=== PATIENT | female | born 1965 | race African-American/Black ===

== ENCOUNTER 2022-02-20 09:47 | Emergency (ER) | payer OTHER, SELFPAY ==
[2022-02-20 10:06] VITALS: BP 147/80; PULSE 67; RESP 16; TEMP 35.7; O2SAT 99
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
== END 2022-02-20 10:45 | disposition home or self-care (01) ==
PROVIDERS: Emergency Provider Nurse Practitioner
DX: M54.41 Lumbago with sciatica, right side (principal)
CPT/HCPCS: 99213; G0463

== ENCOUNTER 2022-09-25 15:53 | Observation (INO) | payer OTHER, SELFPAY ==
[2022-09-25] VITALS (7 sets, daily range): BP systolic 125–180; BP diastolic 65–125; PULSE 64–80; RESP 15–19; TEMP 36.2; O2SAT 96–100
--- NOTE | ~2022-09-25 | XR_ITS ---
EXAMINATION: XR chest 1V portable Exam Date/Time: 09/25/2022 16:05 CDT HISTORY: right sided numbness/ TINGLE IN FACE AND ARM, NO CARDIAC HX Comparison: None available. RESULT: Lines, tubes, and devices: None. Lungs and pleura: Clear. Eventration and elevation of the right hemidiaphragm. Cardiomediastinal silhouette: Normal. Other: No acute osseous or upper abdominal finding. IMPRESSION: No acute cardiopulmonary process. Reviewed, dictated and finalized at location K.
--- NOTE | ~2022-09-25 | CT_ITS ---
EXAMINATION: CTA brain carotid DATE: 09/25/2022 16:57 INDICATION: R facial and arm numbness TECHNIQUE: Computed tomographic angiography (CTA) of the head was performed without and with 100 mL O mnipaque-350 intravenous contrast. CTA of the neck was performed with intravenous contrast. Automated exposure control and iterative reconstruction technique were employed. The dose-length product was 1 474.47 mGy-cm. Maximum intensity projection and volume rendered 3D-reconstructions were created by juan oden technologist on a separate workstation. COMPARISON: None. FINDINGS: CT BRAIN: No acute large vessel infarct, intracranial hemorrhage, mass, or hydrocephalus. CTA HEAD: No large vessel occlusion, aneurysm, high flow vascular malformation, nidus or extravasation. Variant anterior cerebral artery anatomy, both ACAs originate from the left circulation. CTA NECK: Aortic arch and proximal great vessels: Unremarkable. Right common carotid, carotid bifurcation, and internal carotid artery: No significant plaque.There i s 0% stenosis of the proximal right internal carotid artery relative to normal distal artery lumen di ameter (NASCET criteria). Left common carotid, carotid bifurcation, and internal carotid artery: No significant plaque.There is 0% stenosis of the proximal left internal carotid artery relative to normal distal artery lumen diam eter (NASCET criteria). Vertebral arteries: No significant plaque or stenosis. Other findings: Degenerative changes in the cervical spine. Subcentimeter right thyroid lobe hypodens ity, that requires no additional workup. IMPRESSION: No acute intracranial process. No large vessel occlusion. No severe carotid or vertebral artery steno sis. Reviewed, dictated and finalized at location K. IMPRESSION: No acute intracranial process. No large vessel occlusion. No severe carotid or vertebral artery stenosis.
--- NOTE | ~2022-09-25 | MR_ITS ---
EXAMINATION: MR brain/brain stem wo/w con DATE: 09/26/2022 12:37 INDICATION: Cerebrovascular accident. Right face and arm numbness. TECHNIQUE: Magnetic resonance imaging (MRI) of the brain and brainstem was performed without and with 12 mL MultiHance intravenous contrast. COMPARISON: Head CT 09/25/2022 FINDINGS: There are scattered areas of nonspecific increased T2-weighted signal intensity in the cere bral white matter. There is no intracranial hemorrhage or acute infarction. There is a 12 x 9 x 12 mm enhancing extra-axial mass in the left olfactory groove. The ventricles are normal in size. The orbi ts are normal. The mastoid air cells are normal. There is a hemangioma in left parietal bone. IMPRESSION: 1. 12 mm enhancing mass in the left olfactory groove, consistent with a meningioma. 2. Mild nonspecific cerebral white matter disease, which likely represents chronic small vessel ische grady disease. Reviewed, dictated and finalized at location A. IMPRESSION: 1. 12 mm enhancing mass in the left olfactory groove, consistent with a meningi meron. 2. 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
--- NOTE | 2022-09-25 15:56 | ECG_ITS ---
Measurements Intervals [place] Rate: 68 P: 60 CT: 178 QRS: 56 QRSD: 80 T: 62 QT: 403 QTc: 430 Interpretive Statements SINUS RHYTHM WITHIN NORMAL LIMITS NO PREVIOUS ECG AVAILABLE FOR COMPARISON Electronically Signed On 09-26-2022 12:25:41 CDT by Eligio Brown M.D.
[2022-09-25 16:25] LABS: Basophils Percent Auto 0.7 % (0.2-1.2); Eosinophils Absolute Auto 0.1 K/mm3 (0-0.3); Eosinophils Percent Auto 3.1 % (0-4.4); Hemoglobin 13.5 g/dL (12.0-15.0); Immature Granulocyte Absolute 0.01 K/mm3 (0.00-0.031); Immature Granulocyte Percent A 0.2 % (0-0.5); Lymphocytes Absolute Auto 1.62 K/mm3 (0.9-3.2); Lymphocytes Percent Auto 35.8 % (18.3-44.2); Mean Corpuscular HGB Conc 32.9 g/dl (32-36); Mean Corpuscular Hemoglobin 29.5 pg (26-34); Mean Corpuscular Volume 89.7 fl (80-100); Mean Platelet Volume 10.5 fl (7.4-10.4); Monocytes Absolute Auto 0.7 K/mm3 (0.1-0.6); Monocytes Percent Auto 14.6 % (2.6-8.5); Neutrophils Absolute Auto 2.1 K/mm3 (1.3-6.7); Neutrophils Percent Auto 45.6 % (45.5-73.1); Platelet Count Result 258 k/mm3 (150-375); Red Blood Count 4.57 M/mm3 (4.2-5.4); Red Cell Distribution Width 13.4 % (11.5-14.5); White Blood Count 4.5 K/mm3 (4.5-10.0)
--- NOTE | 2022-09-25 16:27 | ED.GENADULT ---
HPI - General Adult General Chief complaint: Suspected CVA Stated complaint: right sided numbness since 1200 Time Seen by Provider: 09/25/22 16:07 History of Present Illness HPI narrative: This is a 57-year-old female presenting to ED with right-sided facial and arm numbness. Last known normal was 1:00 p.m. today. Patient is was out drinking last night and has felt hung over all morning. At 1:00 p.m. she had developed numbness over the right side of her face and her right arm. The patient has a complicated neurologic history and is not clear on her symptoms. 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 Additionally she has been having intermittent numbness and tingling in her right arm for the last year. Patient also had dental work done on the right side which is where her headache is 4 days ago she is not sure for current headache is due to dental work. She denies though she should double vision, dysphagia, dysarthria. She did note some dizziness when she 1st woke up this morning. Patient is also complaining of some nausea and abdominal discomfort which she attributes to her alcohol use last night. Related Data Home Medications Medication Instructions Recorded Confirmed No Home Medications 03/10/22 03/10/22 Allergies Allergy/AdvReac Type Severity Reaction Status Date / Time latex Allergy Unknown Unknown Verified 03/10/22 09:16 Review of Systems Review of Systems: CONSTITUTIONAL: Denies night sweats. EYES: No eye pain ENT: Denies rhinorrhea CARDIOVASCULAR: Denies palpitations RESPIRATORY: Denies hemoptysis GASTROINTESTINAL: Denies hematemesis GENITOURINARY: Denies hematuria. SKIN: Denies rash MUSCULOSKELETAL: Denies myalgia. NEUROLOGIC: Denies weakness. PSYCHIATRIC: Denies delusions [facility] Past Medical History Medical History Nasal congestion Family History Family History Daughter Cancer Mother Diabetes mellitus Hypertension Heart disease Sibling Cerebrovascular accident Social History Social History Smoking status: Never smoker Alcohol intake: never Substance use: unknown Exam Narrative: APPEARANCE: No apparent distress. Head atraumatic. EYES: PERRLA/EOMI, NOSE: Normal no drainage NECK: Supple, Trachea midline RESPIRATORY: CTAB, No increased work of breathing. CARDIOVASCULAR: S1S2 appreciated ABDOMINAL: Soft, nontender, nondistended, MUSCULOSKELETAl: No obvious deformities NEURO: Alert. Moving 4/4 extremities SKIN:: Warm, dry. Normal color PSYCHIATRIC: Normal affect NIH Stroke Scale/Score (NIHSS) from [facility] on 09/25/2022 All calculations should be rechecked by clinician prior to use RESULT SUMMARY: 1 points NIH Stroke Scale INPUTS: 1A: Level of consciousness ?> 0 = Alert; keenly responsive 1B: Ask month and age ?> 0 = Both questions right 1C: 'Blink eyes' & 'squeeze hands' ?> 0 = Performs both tasks 2: Horizontal extraocular movements ?> 0 = Normal 3: Visual carrillo ?> 0 = No visual loss 4: Facial palsy ?> 0 = Normal symmetry 5A: Left arm motor drift ?> 0 = No drift for 10 seconds 5B: Right arm motor drift ?> 0 = No drift for 10 seconds 6A: Left leg motor drift ?> 0 = No drift for 5 seconds 6B: Right leg motor drift ?> 0 = No drift for 5 seconds 7: Limb Ataxia ?> 0 = No ataxia 8: Sensation ?> 1 = Mild-moderate loss: can sense being touched 9: Language/aphasia ?> 0 = Normal; no aphasia 10: Dysarthria ?> 0 = Normal 11: Extinction/inattention ?> 0 = No abnormality Course Vital Signs Vital signs: Vital Signs Pulse Rate 67 09/25/22 16:01 Respiratory Rate 16 09/25/22 16:01 Blood Pressure 159/125 H 09/25/22 16:01 Pulse Oximetry 96 09/25/22 16:01 Oxygen Delivery Room Air 09/25/22 16:01 Pulse Rate 64 09/25/22 16:30 Re
[2022-09-25 16:34] LABS: Prothrombin Time 12.9 Seconds (11.1-14.7)
[2022-09-25 16:35] LABS: Partial Thromboplastin Time 26.4 SECONDS (22.3-36.8)
[2022-09-25 16:59] LABS: Troponin I < 0.012 ng/mL (0.000-0.034)
[2022-09-25] MEDS: ONDANSETRON INJ 4 MG/2 ML VIAL IV PUSH (17:09)
[2022-09-25] MEDS: SODIUM CHLORIDE 0.9% IV 1,000 ML 999 ML IV CONT (17:09)
[2022-09-25 17:10] LABS: Alanine Aminotransferase 19 U/L (6-35); Albumin Level 4.5 g/dL (3.5-5.1); Alkaline Phosphatase 81 U/L (38-126); Anion Gap 13 mmol/L (8-16); Aspartate Amino Transferase 35 U/L (14-36); Bilirubin,Total 0.4 mg/dL (0.2-1.3); Blood Urea Nitrogen 10 mg/dL (7-17); Calcium 8.9 mg/dL (8.4-10.2); Carbon Dioxide 23 mmol/L (22-30); Chloride 103 mmol/L (98-107); Estimated CRCL calculation 58 ml/min; Estimated Glomerular Filt Rate > 60; Glucose 99 mg/dL (65-110); Sodium 139 mmol/L (137-145)
[2022-09-25] MEDS: FAMOTIDINE 20 MG/2 ML VIAL IV PUSH (17:10)
[2022-09-25 17:20] LABS: Lipase 172 U/L (23-300)
[2022-09-25 17:41] LABS: Amphetamine Screen Urine Negative (Negative); Barbiturate Screen Urine Negative (Negative); Benzodiazepines Screen Urine Negative (Negative); Cannabinoid Screen Urine Negative (Negative); Cocaine Screen Urine Negative (Negative); Methadone Screen Urine Negative (Negative); Opiate Screen Urine Negative (Negative); Phencyclidine Screen Urine Negative (Negative)
[2022-09-25] MEDS: ASPIRIN 81 MG CHEWABLE TABLET 324 MG PO (18:18)
--- NOTE | 2022-09-25 18:18 | ED.NEUROSD ---
HPI - Neuro Symptoms/Deficit General Chief Complaint: Suspected CVA Stated Complaint: right sided numbness since 1200 Time Seen by Provider: 09/25/22 16:07 Related Data Home Medications Medication Instructions Recorded Confirmed No Home Medications 03/10/22 03/10/22 Allergies Allergy/AdvReac Type Severity Reaction Status Date / Time latex Allergy Unknown Unknown Verified 03/10/22 09:16 [facility] Past Medical History Medical History Nasal congestion Family History Family History Daughter Cancer Mother Diabetes mellitus Hypertension Heart disease Sibling Cerebrovascular accident Social History Social History Smoking status: Never smoker Alcohol intake: never Substance use: unknown Course Vital Signs Vital signs: Vital Signs Pulse Rate 67 09/25/22 16:01 Respiratory Rate 16 09/25/22 16:01 Blood Pressure 159/125 H 09/25/22 16:01 Pulse Oximetry 96 09/25/22 16:01 Oxygen Delivery Room Air 09/25/22 16:01 Pulse Rate 64 09/25/22 16:30 Respiratory Rate 19 09/25/22 16:30 Blood Pressure 173/90 H 09/25/22 16:30 Pulse Oximetry 100 09/25/22 16:30 Oxygen Delivery Room Air 09/25/22 16:01 MDM - Neuro Symptoms/Deficit Lab Data Result diagrams: 09/25/22 16:20 09/25/22 16:20 Labs: Lab Results 09/25/22 09/25/22 09/25/22 Range/Units 16:20 16:20 16:20 WBC 4.5 (4.5-10.0) K/mm3 RBC 4.57 (4.2-5.4) M/mm3 Hgb 13.5 (12.0-15.0) g/dL Hct 41.0 (37.0-47.0) % MCV 89.7 (80-100) fl MCH 29.5 (26-34) pg MCHC 32.9 (32-36) g/dl RDW 13.4 (11.5-14.5) % Plt Count 258 (150-375) k/mm3 MPV 10.5 H (7.4-10.4) fl Immature Gran % (Auto) 0.2 (0-0.5) % Neut % (Auto) 45.6 (45.5-73.1) % Lymph % (Auto) 35.8 (18.3-44.2) % [place] % (Auto) 14.6 H (2.6-8.5) % Eos % (Auto) 3.1 (0-4.4) % Baso % (Auto) 0.7 (0.2-1.2) % Lymph # (Auto) 1.62 (0.9-3.2) K/mm3 [place] # (Auto) 0.7 H (0.1-0.6) K/mm3 Eos # (Auto) 0.1 (0-0.3) K/mm3 Baso # (Auto) 0.0 (0.0-0.1) K/mm3 Abs Immat Gran (auto) 0.01 (0.00-0.031) K/mm3 Absolute Neuts (auto) 2.1 (1.3-6.7) K/mm3 Absolute Nucleated RBC 0.0 (0.0-0.012) K/mm3 Nucleated RBC % 0.0 (0.0-0.2) % PT 12.9 (11.1-14.7) Seconds INR 1.0 APTT 26.4 (22.3-36.8) SECONDS Sodium 139 (137-145) mmol/L Potassium 4.0 (3.4-5.0) mmol/L Chloride 103 (98-107) mmol/L Carbon Dioxide 23 (22-30) mmol/L Anion Gap 13 (8-16) mmol/L BUN 10 (7-17) mg/dL Creatinine 0.70 (0.7-1.0) mg/dL Estim Creat Clear Calc 58 ml/min Estimated GFR > 60 (59 - ) Glucose 99 (65-110) mg/dL Calcium 8.9 (8.4-10.2) mg/dL Magnesium 2.0 (1.6-2.3) mg/dL Total Bilirubin 0.4 (0.2-1.3) mg/dL AST 35 (14-36) U/L ALT 19 (6-35) U/L Alkaline Phosphatase 81 (38-126) U/L Troponin I < 0.012 (0.000-0.034) ng/mL Total Protein 8.0 (6.3-8.2) g/dL Albumin 4.5 (3.5-5.1) g/dL Lipase 172 (23-300) U/L Urine Opiates Screen (Negative) Urine Methadone Screen (Negative) Ur Barbiturates Screen (Negative) Ur Phencyclidine Scrn (Negative) Ur Amphetamine Screen (Negative) U Benzodiazepines Scrn (Negative) Urine Cocaine Screen (Negative) U Cannabinoids Screen (Negative) 09/25/22 Range/Units 17:16 WBC (4.5-10.0) K/mm3 RBC (4.2-5.4) M/mm3 Hgb (12.0-15.0) g/dL Hct (37.0-47.0) % MCV (80-100) fl MCH (26-34) pg MCHC (32-36) g/dl RDW (11.5-14.5) % Plt Count (150-375) k/mm3 MPV (7.4-10.4) fl Immature Gran % (Auto) (0-0.5) % Neut % (Auto) (45.5-73.1) % Lymph % (Auto) (18.3-44.2) % [place] % (Auto) (2.6-8.5) % Eos % (Auto) (0-4.4) % Baso % (Auto)
[2022-09-25 19:23] LABS: SARS-CoV-2 RNA PCR Negative
--- NOTE | 2022-09-25 23:30 | PM.IMHP ---
H&P: HPI History of Present Illness Date/Time: 09/25/22 23:30 Chief Complaint: Right arm numbness and tingling. Narrative: This is a 57-year-old female with history of elevated blood pressure control with diet exercise, anxiety, depression who presented to the emergency department for evaluation of numbness and tingling on her right arm. This morning when she woke up she had numbness of her right arm, mainly from the shoulder to mid forearm. It seemed to improve when she went down to breakfast however it has been pretty consistent since that time. She has also noticed some numbness on the right side of her face though her lips and tongue are not affected ( initially she thought the symptoms on her face were related to the fact that she had dental implants done on ). She goes on to say that she has had similar episodes intermittently over the last 6 months, she believes four episodes prior to today. In addition to the right-sided numbness she has also experienced slurred speech and floaters in her peripheral vision with prior episodes though that did not occur today. She also states that is not unusual for her to developed a headache after the symptoms occur. Typically they resolved within 15 to 30 minutes however symptoms lasted longer today and she came in for evaluation. Her blood pressures were in the 170s systolic on arrival to the emergency department but her last reading was well within normal limits. As above she has been told that her blood pressures have been high in the past though she has never been started on antihypertensives. Her labs and tox screen were reviewed and are unremarkable. CTA of the head and neck showed no acute intracranial process. Due to ongoing paresthesias she is being admitted for further evaluation. At the time my evaluation she still has some mild paresthesias along the right shoulder but all other symptoms have resolved. She denies current headache, auditory and visual changes, vertigo, focal weakness, facial droop, dysarthria, dysphagia, and coordination issues. She is in good shape and does exercise frequently and lifts weights though she has not had any injuries to her neck or shoulder. She has not had exertional chest pain or palpitations but she has noticed more recently that she has been getting increasingly fatigued with Cardio. Review of Systems Review of Systems: Twelve systems were reviewed. She had some mild dyspepsia this morning for which he took Mylanta; she blames that on the fact that she had a few shots of alcohol last night which is unusual for her. No exertional chest pain or shortness of breath. No orthopnea, PND, or lower extremity edema. She denies vomiting. No diarrhea. No dysuria. Except as documented, all other systems were reviewed and are negative. [facility] Past Medical History Medical History (Updated 09/26/22 @ 00:35 by Madeleine Elena PA-C) Allergic rhinitis Anxiety and depression Chronic sinusitis Irritable bowel syndrome Migraines Nasal congestion Nasal polyps Surgical History Surgical History History of partial hysterectomy Family History Family History Daughter Cancer Mother Diabetes mellitus Hypertension Heart disease Sibling Cerebrovascular accident Social History Social History (Updated 09/26/22 @ 00:34 by Madeleine Elena PA-C) Social History: Surrogate medical decision maker: Son Momin, daughter. Code status: Full code. Smoking status: Never smoker Alcohol intake: current Drinks per week: 2 Substance use: never Has the Lack of Transportation Kept You From Medical Appointments or From Getting Medications?: No Within the Past 12 Months, Were You Worried Whether Your Food Would Run Out Before You Got Money to Buy More?: Never True What is Your Housing Situation Today?: I Have Housing Are You Worried That in t
[2022-09-26] VITALS (11 sets, daily range): BP systolic 130–172; BP diastolic 74–97; PULSE 51–76; RESP 16–18; TEMP 36.2–36.8; O2SAT 100
--- NOTE | 2022-09-26 | ECHO_ITS ---
Patient Info Name: Bonnie Healy Age: 57 years : 1965 Gender: Female Ht: 61 in Wt: 139 lbs BSA: 1.66 m2 HR: 60 bpm BP: 130 / 82 mmHg Heart Rhythm: Sinus Rhythm Technical Quality: Good Exam Date: 09/26/2022 10:47 AM Exam Location: [facility] Patient Status: Outpatient Admit Date: 09/25/2022 Staff Ordering Physician: Madeleine Elena PA-C Pelt Dropper: Emelina Douglas RDCS Attending Provider: Luis Salazar MD Referring Physician: Ulices VICK; Exam Type: CA echo doppler color flow Study Info Indications - ELEVATED BLOOD PRESSURE - RIGHT SIDE PARESTHESIAS Complete two-dimensional, color flow and Doppler transthoracic echocardiogram is performed. Summary 1. Complete two-dimensional, color flow and Doppler transthoracic echocardiogram is performed. 2. Normal left and right ventricular systolic function. 3. Mild concentric LVH. 4. Trivial amount of tricuspid insufficiency/normal estimated PA pressure. 5. Sinus rhythm. Left Ventricle Left ventricular chamber dimension is normal. Left ventricular systolic function is normal, estimated at 55-60%. There is mild concentric increased left ventricular wall thickness. The left ventricular diastolic function is normal. Right Ventricle Right ventricular chamber dimension is normal. Left Atria Left atrial chamber dimension is normal. Right Atria Right atrial chamber dimension is normal. Aortic Valve The aortic valve is normal. Pulmonic Valve The pulmonic valve is normal. Mitral Valve The mitral valve has normal leaflets. Tricuspid Valve The tricuspid valve leaflets are normal. There is trace tricuspid valve regurgitation. No pulmonary hypertension, estimated pulmonary arterial systolic pressure is 36 mmHg. Pericardium/Pleural The pericardium appears normal. Aorta The aortic root size at the sinus of Valsalva is normal. Left Ventricular Outflow Tract Name Value Normal LVOT 2D LVOT Diameter 1.9 cm LVOT Doppler LVOT Peak Gradient 4 mmHg LVOT Mean Gradient 2 mmHg LVOT VTI 24 cm LVOT VTI/AV VTI Ratio 0.9 LVOT Stroke Volume 66 ml LVOT CO 3.6 l/min LVOT CI 2.2 l/min/m2 Pulmonic Valve Name Value Normal RVOT Doppler RVOT Peak Gradient 2 mmHg PV Doppler PV Peak Gradient 3 mmHg Mitral Valve Name Value Normal MV Doppler
[2022-09-26 03:36] LABS: Folic Acid 7.5 ng/mL (2.76->20)
--- NOTE | 2022-09-26 05:33 | ADMGEN ---
This patient, Bonnie Healy, was admitted to Medical Room 349-01. Patient/family oriented to hospital policies and general routines including ID bracelet, bed and alarms, visiting hours, pain management, procedures, bathroom and other care routines, personal items, smoking policy, room service/diet, and visiting hours. Information on how to activate the Rapid Response Team has been discussed. Patient/Family are encouraged to report perceived risks to care and to ask questions if they do not understand what they are told or what they should do.
[2022-09-26 06:34] LABS: Cholesterol 182 mg/dL (0-200); HDL Direct 79 mg/dL; Triglycerides 52 mg/dL (<150)
[2022-09-26 06:44] LABS: LDL Cholesterol Direct 67 mg/dL
[2022-09-26 09:02] LABS: Hemoglobin A1C 5.5 % (<5.7)
[2022-09-26] MEDS: THIAMINE HCL 100 MG TABLET PO (09:51)
--- NOTE | 2022-09-26 11:50 | PM.IMPN ---
Progress Note: A&P Assessment and Plan (1) Numbness on right side: Code(s): R20.0 - Anesthesia of skin Status: Acute Assessment and Plan: resolved. Neurology consulted. CTA head negative. MRI ordered. Echo pending cholesterol panel within normal limits. Check A1c (2) Elevated blood pressure reading: Code(s): R03.0 - Elevated blood-pressure reading, without diagnosis of hypertension Status: Acute Assessment and Plan: allow permissive hypertension (3) Hypertension: Code(s): I10 - Essential (primary) hypertension Status: Acute Assessment and Plan: monitor blood pressure. Allow permissive hypertension Subjective Date/time seen: 09/26/22 11:50 no overnight issues. No neurological deficits Exam Narrative: General: Well-developed female supine in bed in no distress. Weight: 63.05 kilograms. BMI: 25.8. HEENT: Normocephalic, atraumatic. PERRL, EOMI. Sclera anicteric. Oral mucosa moist. Oropharynx clear. Neck: Supple. No bruits. Respiratory: Lungs are clear to auscultation bilaterally. Cardiovascular: Regular rate and rhythm with S1-S2. No murmur, rub, or gallop. Gastrointestinal: Abdomen is soft, nontender, and nondistended with positive bowel sounds. Skin: Warm and dry. No rash or lesions on limited exam. Extremities: No cyanosis, clubbing, or edema. Radial and pedal pulses intact. Musculoskeletal: No midline vertebral tenderness. No palpation over the cervical paraspinous muscles or right shoulder. Good range of motion Without pain. Neurological: Alert And oriented x4. Cranial nerves 2-12 are grossly intact. Speech is clear. No facial asymmetry. 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 Normal [id number], rapid alternating movements, and heel to shelton. No pronator drift. No gross focal deficits to casual conversation. Psychiatric: Pleasant and cooperative With appropriate mood and affect. Objective Data Vital Signs Vital Signs: Vital Signs - 24 hr 09/25/22 16:01 09/25/22 16:30 09/25/22 16:15 Temperature Pulse Rate 67 64 80 Respiratory Rate 16 19 17 Blood Pressure 159/125 H 173/90 H 176/101 H Pulse Oximetry 96 100 100 Oxygen Delivery Room Air 09/25/22 19:41 09/25/22 19:51 09/25/22 22:00 Temperature 97.1 F L Pulse Rate 70 75 73 Respiratory Rate 15 19 16 Blood Pressure 180/99 H 178/90 H 125/65 Pulse Oximetry 100 100 100 Oxygen Delivery 09/25/22 20:00 09/25/22 20:00 09/26/22 00:00 Temperature Pulse Rate 71 59 L Respiratory Rate Blood Pressure Pulse Oximetry Oxygen Delivery Room Air 09/26/22 04:00 09/26/22 06:00 09/26/22 11:36 Temperature 97.1 F L Pulse Rate 73 76 Respiratory Rate 16 Blood Pressure 130/82 151/75 H Pulse Oximetry 100 Oxygen Delivery 09/26/22 11:36 09/26/22 11:36 Temperature Pulse Rate Respiratory Rate Blood Pressure 155/85 H 172/97 H Pulse Oximetry Oxygen Delivery Intake/Output Intake/Output: Intake & Output 09/23/22 09/24/22 09/25/22 09/26/22 23:59 23:59 23:59 23:59 Intake Total 1000 240 Balance 1000 240 Meds/Results Medications: Active Medications Generic Name Dose Route Start Last Admin Trade Name Freq PRN Reason Stop Dose Admin Perflutren Lipid Microsphere 0 ml 09/25/22 22:57 Perflutren Lipid Microspheres 1.5 Ml Vial Diluted To 10 Ml Total Volume IV PUSH 09/27/22 22:57 ONCE PRN adequate visualization Protocol Thiamine HCl 100 mg 09/26/22 09:00 09/26/22 09:51 Thiamine Hcl 100 Mg Tablet PO 100 mg DAILY SARAH Administration Radiology Results: ITS Impressions Chest X-Ray 09/25/22 16:15 IMPRESSION: No acute cardiopulmonary process. Head/Neck CTA 09/25/22 17:04 IMPRESSION: No acute intracranial process. No large vessel occlusion. No severe carotid or vertebral artery stenosis. Labs Labs: Laboratory Results - last 24 hr 09/25/22
--- NOTE | 2022-09-26 12:26 | WPDNEURCNPN ---
Assessment and Plan Assessment and plan (1) Hypertension: Code(s): I10 - Essential (primary) hypertension Status: Acute (2) Numbness on right side: Code(s): R20.0 - Anesthesia of skin Status: Acute (3) Migraine: Code(s): G43.909 - Migraine, unspecified, not intractable, without status migrainosus Status: Acute (4) Demyelinating disease: Code(s): G37.9 - Demyelinating disease of central nervous system, unspecified Status: Acute (5) Carpal tunnel syndrome: Code(s): G56.00 - Carpal tunnel syndrome, unspecified upper limb Status: Acute Plan 1. TIA 2. Possible migrainous phenomenon 3. MRI is being done to rule out the possibility of stroke versus demyelinating disease 4 rule out the possibility of carpal tunnel syndrome as an outpatient with EMG and nerve conduction study Consult date: 09/26/22 HPI: Bonnie Healy is a 57 year old female Admitted to the hospital through the emergency room for the possibility of stroke with clinical symptomatology of right-sided numbness and with the history of having had no medication being allergic to only latex and also with no history of smoking or drinking initial vital signs in the emergency room were normal except blood pressure of 159/125 repeat 173/90, CBC and BMP were normal and the drug screen was negative, head neck CTA was negative with no underlying aneurysm or large vessel occlusion and MRI of the brain at this stage pending. Review of Systems Review of Systems: All systems reviewed & are unremarkable except as noted in HPI and below PMFSH Past Medical History Medical History (Updated 09/26/22 @ 12:34 by Michael Williamson MD) Allergic rhinitis Anxiety and depression Chronic sinusitis Irritable bowel syndrome Migraines Nasal congestion Nasal polyps Surgical History Surgical History History of partial hysterectomy Family History Family History Daughter Cancer Mother Diabetes mellitus Hypertension Heart disease Sibling Cerebrovascular accident Social History Social History (Updated 09/26/22 @ 00:34 by Madeleine Elena PA-C) Social History: Surrogate medical decision maker: Son Momin, daughter. Code status: Full code. Smoking status: Never smoker Alcohol intake: current Drinks per week: 2 Substance use: never Has the Lack of Transportation Kept You From Medical Appointments or From Getting Medications?: No Within the Past 12 Months, Were You Worried Whether Your Food Would Run Out Before You Got Money to Buy More?: Never True What is Your Housing Situation Today?: I Have Housing Are You Worried That in the Next 2 Months, You May Not Have Your Own Housing to Live In?: No Do You Have Trouble Paying Your Heating Or Electricity Bill?: Yes Do You Have Trouble Paying For Medicines?: Yes Are You Currently Unemployed and Looking for Work?: No Highest Level of Education Completed: Associate Degree Do You Have Trouble With Childcare or the Care of a Family Member?: No Additional living arrangements comments: Lives in [place]. 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 Spiritual care concerns: No Meds Home Medications and Allergies Home Medications Medication Instructions Recorded Confirmed Type cyanocobalamin (vitamin B-12) 1,000 mcg PO DAILY 09/25/22 09/25/22 History 1,000 mcg sublingual tablet thiamine HCl (vitamin B1) 100 mg 100 mg PO DAILY 09/25/22 09/25/22 History tablet Allergies Allergy/AdvReac Type Severity Reaction Status Date / Time latex Allergy Mild Migraine Verified 09/25/22 20:49 Vital Signs Vital Signs - 24 hr 09/25/22 16:01 09/25/22 16:30 09/25/22 16:15 Temperature Pulse Rate 67 64 80 Respiratory Rate 16 19 17 Blood Pressure 159/125 H 173/90 H 176/101 H Pulse Oximetry 96 100 100
[2022-09-26 13:33] LABS: Estimated CRCL calculation 65 ml/min; Estimated Glomerular Filt Rate > 60
[2022-09-27] VITALS (13 sets, daily range): BP systolic 136–189; BP diastolic 72–89; PULSE 43–73; RESP 16–18; TEMP 36.4–36.8; O2SAT 100
[2022-09-27] MEDS: THIAMINE HCL 100 MG TABLET PO (09:15)
--- NOTE | 2022-09-27 09:28 | WPDNEUROLOGY ---
Neurology EEG Report General Information Date of Study: 09/27/22 TEST eeg DIAGNOSIS Abnormal MRI CONDITION OF RECORDING awake and drowsy EEG NUMBER [id number] CLINICAL HISTORY patient came in to the hospital with headaches and right-sided numbness MRI of the brain was abnormal EEG DESCRIPTION basic resting occipital frequency consists of low-voltage to medium voltage 8 to 10 hertz per 2nd alpha admixed with low-voltage 15 to 18 hertz per 2nd beta during brief periods of wakefulness. Low-voltage beta activity seen diffusely admixed with waxing and waning posterior alpha rhythm during drowsiness. Bilateral symmetrical sleep activity seen during sleep. Hyperventilation not done. Photic stimulation not done. Non paroxysmal. Nonfocal. Nonlateralizing. IMPRESSION Normal record
[2022-09-27] MEDS: FUROSEMIDE 40 MG TABLET PO ×2 (11:43→17:00)
--- NOTE | 2022-09-27 12:17 | PM.IMPN ---
Progress Note: A&P Assessment and Plan (1) Numbness on right side: Code(s): R20.0 - Anesthesia of skin Status: Acute Assessment and Plan: Ongoing. Neurology consulted. CTA head negative. MRI shows 12mm enhancing lesion. Add gabapentin sp EEG today. Continue neuro checks today. Neurology ok for DC soon when more stable with Neuro follow up (2) Elevated blood pressure reading: Code(s): R03.0 - Elevated blood-pressure reading, without diagnosis of hypertension Status: Acute Assessment and Plan: Remains high add lasix 40mg po bid (3) Hypertension: Code(s): I10 - Essential (primary) hypertension Status: Acute Assessment and Plan: Monitor blood pressure. Staying high Subjective Date/time seen: 09/27/22 12:17 57-year-old female with history of elevated blood pressure control with diet exercise, anxiety, depression who presented to the emergency department for evaluation of numbness and tingling on her right arm.? This morning when she woke up she had numbness of her right arm, mainly from the shoulder to mid forearm.? It seemed to improve when she went down to breakfast? however it has been pretty consistent since that time. She has also noticed some numbness on the right side of her face though her lips and tongue are not affected ( initially she thought the symptoms on her face were related to the fact that she had dental implants done on ). She goes on to say that she has had similar episodes intermittently over the last 6 months, she believes four episodes prior to today. In addition to the right-sided numbness she has also experienced slurred speech and floaters in her peripheral vision with prior episodes though that did not occur today. She also states that is not unusual for her? to developed a headache after the symptoms occur. Pt is having right arm numbness high blood pressures sp EEG full report not back MRI shows 12 mm enhancing mass in the left olfactory groove, consistent with a meningioma. 2. Mild nonspecific cerebral white matter disease, which likely represents chronic small vessel ischemic disease. Seen by neurology today Bp currently 189/89 continue to watch bp today Review of Systems Review of Systems: R arm numbness dizziness light headness Exam Narrative: General: fatigue dizziness feelings . Respiratory: Lungs are clear to auscultation bilaterally. Cardiovascular: Regular rate and rhythm with S1-S2. No murmur, rub, or gallop. Gastrointestinal: Abdomen is soft, nontender, and nondistended with positive bowel sounds. Skin: Warm and dry. No rash or lesions on limited exam. Extremities: R arm parasthesia Musculoskeletal: No midline vertebral tenderness. No palpation over the cervical paraspinous muscles or right shoulder. Good range of motion Without pain. Neurological: Alert And oriented x4. Cranial nerves 2-12 are grossly intact. Speech is clear. No facial asymmetry. 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 Normal [id number], rapid alternating movements, and heel to shelton. No pronator drift. No gross focal deficits to casual conversation. Psychiatric: Pleasant and cooperative With appropriate mood and affect. Objective Data Vital Signs Vital Signs: Vital Signs - 24 hr 09/26/22 15:51 09/26/22 16:00 09/26/22 20:00 Temperature 36.8 C 36.8 C Pulse Rate 51 L 61 69 Respiratory Rate 18 16 Blood Pressure 145/75 H 141/74 H Pulse Oximetry 100 100 Oxygen Delivery 09/26/22 20:55 09/26/22 21:24 09/26/22 20:00 Temperature 36.8 C 36.8 C Pulse Rate 72 69 Respiratory Rate 16 16 Blood Pressure 154/81 H 141/74 H Pulse Oximetry 100 100 Oxygen Delivery Room Air 09/26/22 20:00 09/27/22 00:00 09/27/22 04:00 Temperature Pulse Rate 65 58 L 61 Respiratory Rate Blood Pressure Pulse Oximetry Oxygen Delivery 09/27/22 06:00 09/27/22 09:15 09/27/22 09:15 Temperature 36.8 C Pul
--- NOTE | 2022-09-27 13:21 | WPDNEUROPN ---
Progress Note: A&P Assessment and Plan (1) Carpal tunnel syndrome: Code(s): G56.00 - Carpal tunnel syndrome, unspecified upper limb Status: Acute (2) Meningioma: Code(s): D32.9 - Benign neoplasm of meninges, unspecified Status: Acute Plan advised her that MRI of the brain has revealed 12mm enhancing mass in left olfactory groove consistent with the meningioma and her EEG was normal in addition for the complaints of numbness of the hand she should be followed in the EMG Lab with nerve conduction study to rule out the possibility of carpal tunnel syndrome she has also been complaining of pain and discomfort in the right upper extremity. She can be referred to the neurosurgical office as an outpatient and can be scheduled for the EMG nerve conduction study as an outpatient she needs to have her forms filled Time Spent With Patient Time with patient: less than 15 minutes Subjective Date/time seen: 09/27/22 13:21 Objective Data Vital Signs Vital Signs: Vital Signs - 24 hr 09/26/22 15:51 09/26/22 16:00 09/26/22 20:00 Temperature 36.8 C 36.8 C Pulse Rate 51 L 61 69 Respiratory Rate 18 16 Blood Pressure 145/75 H 141/74 H Pulse Oximetry 100 100 Oxygen Delivery 09/26/22 20:55 09/26/22 21:24 09/26/22 20:00 Temperature 36.8 C 36.8 C Pulse Rate 72 69 Respiratory Rate 16 16 Blood Pressure 154/81 H 141/74 H Pulse Oximetry 100 100 Oxygen Delivery Room Air 09/26/22 20:00 09/27/22 00:00 09/27/22 04:00 Temperature Pulse Rate 65 58 L 61 Respiratory Rate Blood Pressure Pulse Oximetry Oxygen Delivery 09/27/22 06:00 09/27/22 09:15 09/27/22 09:15 Temperature 36.8 C Pulse Rate 55 L 43 L Respiratory Rate 16 Blood Pressure 158/83 H Pulse Oximetry 100 Oxygen Delivery Room Air 09/27/22 10:42 09/27/22 10:43 09/27/22 10:43 Temperature Pulse Rate Respiratory Rate Blood Pressure 151/73 H 187/80 H 189/89 H Pulse Oximetry Oxygen Delivery Intake/Output Intake/Output: Intake & Output 09/24/22 09/25/22 09/26/22 09/27/22 23:59 23:59 23:59 23:59 Intake Total 1000 1200 240 Balance 1000 1200 240 Meds/Results Medications: Active Medications Generic Name Dose Route Start Last Admin Trade Name Elizabeth PRN Reason Stop Dose Admin Enoxaparin Sodium 40 mg 09/28/22 09:00 Enoxaparin 40 Mg/0.4 Ml Syringe SUB-Q DAILY [facility] Furosemide 40 mg 09/27/22 17:00 Furosemide 40 Mg Tablet PO BID SARAH Gabapentin 100 mg 09/27/22 17:00 Gabapentin 100 Mg Capsule PO BID SARAH Perflutren Lipid Microsphere 0 ml 09/25/22 22:57 Perflutren Lipid Microspheres 1.5 Ml Vial Diluted To 10 Ml Total Volume IV PUSH 09/27/22 22:57 ONCE PRN adequate visualization Protocol Thiamine HCl 100 mg 09/26/22 09:00 09/27/22 09:15 Thiamine Hcl 100 Mg Tablet PO 100 mg DAILY SARAH Administration Radiology Results: ITS Impressions Chest X-Ray 09/25/22 16:15 IMPRESSION: No acute cardiopulmonary process. Head/Neck CTA 09/25/22 17:04 IMPRESSION: No acute intracranial process. No large vessel occlusion. No severe carotid or vertebral artery stenosis. Brain MRI 09/26/22 12:49 IMPRESSION: 1. 12 mm enhancing mass in the left olfactory groove, consistent with a meningioma. 2. Mild nonspecific cerebral white matter disease, which likely represents chronic small vessel ischemic disease. Labs Labs: Laboratory Results - last 24 hr 09/25/22 16:50 Creatinine 0.70 Estim Creat Clear Calc 65 Estimated GFR > 60
[2022-09-28] VITALS: PULSE 58
[2022-09-28 04:00] VITALS: PULSE 51
[2022-09-28 05:42] VITALS: BP 153/76; PULSE 53; RESP 18; TEMP 36.6; O2SAT 100
[2022-09-28 07:50] LABS: Hematocrit 41.9 % (37.0-47.0); Hemoglobin 13.6 g/dL (12.0-15.0); Mean Corpuscular HGB Conc 32.5 g/dl (32-36); Mean Corpuscular Hemoglobin 29.1 pg (26-34); Mean Corpuscular Volume 89.7 fl (80-100); Mean Platelet Volume 10.8 fl (7.4-10.4); Platelet Count Result 244 k/mm3 (150-375); Red Blood Count 4.67 M/mm3 (4.2-5.4); Red Cell Distribution Width 13.4 % (11.5-14.5); White Blood Count 3.7 K/mm3 (4.5-10.0)
[2022-09-28 08:00] VITALS: BP 185/76; PULSE 66
[2022-09-28] MEDS: THIAMINE HCL 100 MG TABLET PO (09:05)
[2022-09-28] MEDS: FUROSEMIDE 40 MG TABLET PO (09:05)
[2022-09-28] MEDS: GABAPENTIN 100 MG CAPSULE PO (09:05)
[2022-09-28] MEDS: ENOXAPARIN 40 MG/0.4 ML SYRINGE SUB-Q (09:08)
--- NOTE | 2022-09-28 09:10 | PM.DS ---
DS: Admitting Diagnosis Discharge Date 09/28/2022 Admitting Diagnosis right arm numbness DS: Discharge Diagnosis Discharge Diagnosis (1) Numbness on right side: Code(s): R20.0 - Anesthesia of skin Status: Acute (2) Elevated blood pressure reading: Code(s): R03.0 - Elevated blood-pressure reading, without diagnosis of hypertension Status: Acute (3) Hypertension: Code(s): I10 - Essential (primary) hypertension Status: Acute DS: Summary Hospital Course Reason for hospitalization: This is a 57-year-old female with history of elevated blood pressure control with diet exercise, anxiety, depression who presented to the emergency department for evaluation of numbness and tingling on her right arm.? This morning when she woke up she had numbness of her right arm, mainly from the shoulder to mid forearm.? It seemed to improve when she went down to breakfast? however it has been pretty consistent since that time. She has also noticed some numbness on the right side of her face though her lips and tongue are not affected ( initially she thought the symptoms on her face were related to the fact that she had dental implants done on ). She goes on to say that she has had similar episodes intermittently over the last 6 months, she believes four episodes prior to today. In addition to the right-sided numbness she has also experienced slurred speech and floaters in her peripheral vision with prior episodes though that did not occur today. She also states that is not unusual for her? to developed a headache after the symptoms occur. Typically they resolved within 15 to 30 minutes however symptoms lasted longer today and she came in for evaluation. Her blood pressures were in the 170s systolic on arrival to the emergency department but her last reading was well within normal limits. As above she has been told that her blood pressures have been high in the past though she has never been started on antihypertensives. Her labs and tox screen were reviewed and are unremarkable. CTA of the head and neck showed no acute intracranial process. Due to ongoing paresthesias she is being admitted for further evaluation. At the time my evaluation she still has some mild paresthesias along the right shoulder but all other symptoms have resolved. She denies current headache, auditory and visual changes, vertigo, focal weakness, facial droop, dysarthria, dysphagia, and coordination issues. She is in good shape and does exercise frequently and lifts weights though she has not had any injuries to her neck or shoulder. She has not had exertional chest pain or palpitations but she has noticed more recently that she has been getting increasingly fatigued with Cardio. Hospital Course: was admitted and further evaluated an MRI of the brain. MRI brain showed 12 mm enhancing mass in the left olfactory groove consistent with meningioma. EEG was also done which was normal. She will need a nerve conduction study to rule out possibility of carpal tunnel syndrome. There also instances of pain and discomfort in the right upper extremity for which he will be referred to neurosurgical office. EMG nerve conduction study will help in this regard as well she was hypertensive during the hospital stay. She does have intermittent episodes of hypertension but overall she reports her blood pressures been well controlled. She was given Lasix during the hospital stay to control her blood pressure. She will be switched to Norvasc 5 mg daily. But advised her to keep an eye on her blood pressure record at home and take the log to her PCP for review. Time Spent with Patient Time attestation: Total time spent providing and/or coordinating discharge services: 45 minutes Exam Narrative: General: alert and oriented x3, no acute distress Respiratory: Lungs are clear to auscultation bilaterally. no respiratory distress Cardiovascular: Regular rate and rhythm with S1-S2
[2022-09-28 09:56] VITALS: BP 177/90; BP 179/83
[2022-09-28 11:05] LABS: Anion Gap 10 mmol/L (8-16); Blood Urea Nitrogen 18 mg/dL (7-17); Calcium 9.2 mg/dL (8.4-10.2); Carbon Dioxide 28 mmol/L (22-30); Chloride 102 mmol/L (98-107); Estimated CRCL calculation 51 ml/min; Estimated Glomerular Filt Rate > 60; Glucose 98 mg/dL (65-110); Potassium 3.6 mmol/L (3.4-5.0); Sodium 140 mmol/L (137-145)
== END 2022-09-28 12:50 | disposition home or self-care (01) ==
LOC: ANHED 18:18 → ANH3MED 19:26
PROVIDERS: Emergency Medicine; Family Medicine; Hospitalist; Physician Assistant; Admitting Provider Internal Medicine; Emergency Provider Emergency Medicine; Visit Provider Internal Medicine
DX: R20.0 Anesthesia of skin (principal); I11.9 Hypertensive heart disease without heart failure; R20.2 Paresthesia of skin; G43.909 Migraine, unspecified, not intractable, without status migrainosus; G37.9 Demyelinating disease of central nervous system, unspecified; G56.00 Carpal tunnel syndrome, unspecified upper limb; D32.9 Benign neoplasm of meninges, unspecified; F41.9 Anxiety disorder, unspecified; F32.A Depression, unspecified; R53.83 Other fatigue; Z20.822 Contact with and (suspected) exposure to COVID-19; J32.9 Chronic sinusitis, unspecified; K58.9 Irritable bowel syndrome, unspecified; Z79.899 Other long term (current) drug therapy; F10.90 Alcohol use, unspecified, uncomplicated; R90.82 White matter disease, unspecified; Z82.49 Family history of ischemic heart disease and other diseases of the circulatory system; Z83.3 Family history of diabetes mellitus; Z82.3 Family history of stroke; Z97.2 Presence of dental prosthetic device (complete) (partial)
CPT/HCPCS: 36415; 70496; 70498; 70553; 71045; 80048; 80053; 80061; 80307; 82607; 82746; 83036; 83690; 83735; 84443; 84484; 85025; 85027; 85610; 85730; 93005; 93306; 95816; 96372; 99285; A9270; A9577; G0378; J1650; J2405; J7030; Q9967; U0003; U0005

== ENCOUNTER 2023-05-10 12:10 | Emergency (ER) | payer OTHER, SELFPAY | END 2023-05-10 14:36 | disposition left against medical advice (07) | PROVIDERS: Emergency Provider Emergency Medicine | DX: G43.909 Migraine, unspecified, not intractable, without status migrainosus (principal) | CPT/HCPCS: 99199 ==

== ENCOUNTER → 2023-06-12 08:34 | Outpatient (CLI) | payer OTHER, SELFPAY ==
--- NOTE | ~2023-06-12 | MR_ITS ---
MRI of the cervical spine Clinical History: Radiculopathy Technique: Axial T2-weighted and gradient images, and sagittal T1-weighted, T2-weighted, and STIR nuno ges were acquired. Findings: There is mild reversal of the normal cervical lordosis. No fracture or subluxation seen. No suspicious bone marrow signal abnormality seen. At C2-C3, there is moderate degenerative disc narrowing with left paracentral disc osteophyte complex . There is minimal flattening of the ventral left side of spinal cord. Neural foramina are preserved. At C3-C4, there is severe degenerative disc narrowing. There is disc osteophyte complex with mild spi nal canal stenosis and ventral cord compression. There is bilateral neural foraminal narrowing, left worse than right, with left facet arthropathy. At C4-C5, there is severe degenerative disc narrowing with mild disc osteophyte complex. There is min imal canal stenosis without hanna cord compression. Neural foramina are probably mildly narrowed bila terally. At C5-C6, there is advanced degenerative disc narrowing. There is mild disc ossify convex. There is m inimal canal stenosis without hanna cord compression. There is bilateral neural foraminal narrowing. At C6-C7, there is moderate degenerative disc narrowing. No disc bulge or herniation. No spinal canal stenosis, cord compression, or neural foraminal narrowing. No abnormal signal seen in the spinal cord. Paravertebral soft tissues are unremarkable. Impression: Moderate degenerative spondylosis, as above, worst at C3-C4. Reviewed, dictated and finalized at [facility]. Impression: Moderate degenerative spondylosis, as above, worst at C3-C4.
--- NOTE | ~2023-06-12 | MR_ITS ---
EXAMINATION: MR brain/brain stem wo/w con DATE: 06/12/2023 10:11 INDICATION: Benign neoplasm of meninges, unspecified. TECHNIQUE: Magnetic resonance imaging (MRI) of the brain and brainstem was performed without and with 12 mL MultiHance intravenous contrast. COMPARISON: Brain MRI 09/26/2022 FINDINGS: There are scattered areas of nonspecific increased T2-weighted signal intensity in the cere bral white matter. There is a 13 x 12 x 10 mm enhancing extra-axial mass in the left olfactory groove . There is no acute ischemic infarct or intracranial hemorrhage. The ventricles are normal in size. T he orbits are normal. The mastoid air cells are normal. The paranasal sinuses are clear. IMPRESSION: 1. Stable 13 mm enhancing mass in the left olfactory groove, consistent with a meningioma. 2. Stable mild nonspecific cerebral white matter disease, which likely represents chronic small vesse l ischemic disease. Reviewed, dictated and finalized at location [facility]. IMPRESSION: 1. Stable 13 mm enhancing mass in the left olfactory groove, consistent with a meningioma. 2. Stable mild nonspecific cerebral white matter disease, which likely represen ts chronic small vessel ischemic disease.
== END ==
PROVIDERS: PCP Internal Medicine; Visit Provider Neurological Surgery
DX: D32.0 Benign neoplasm of cerebral meninges (principal); M47.812 Spondylosis without myelopathy or radiculopathy, cervical region
CPT/HCPCS: 70553; 72141; A9577